=== PATIENT | male | born 1970 | race Caucasian/White ===

== ENCOUNTER 2017-04-01 07:27 | Day surgery (SDC) | payer OTHER ==
[2017-04-01] MEDS ORDERED: PROPOFOL 500 MG/50 ML EMU IV ONE (08:51)
[2017-04-01] MEDS ORDERED: PROPOFOL 10 MG/ML EMU IV ONE (08:54)
[2017-04-01 09:17] VITALS: PULSE 65
[2017-04-01 09:28] VITALS: BP 111/76; RESP 20; TEMP 97.4; O2SAT 96
== END 2017-04-01 09:39 | disposition home or self-care (01) | DRG 392 ==
LOC: SURG 07:27
PROVIDERS: ATTEND Surgery
DX: K57.30 Diverticulosis of large intestine without perforation or abscess without bleeding (principal); Z87.19 Personal history of other diseases of the digestive system
CPT/HCPCS: J2704